=== PATIENT | female | born 1975 | race Caucasian/White ===

== ENCOUNTER 2016-05-21 18:37 | Emergency (ER) | payer OTHER ==
[~2016-05-21] VITALS: Ht 162.6 cm; Wt 99.8 kg
[~2016-05-21 18:37] MED LIST: ADDERALL 20 MG20 MG PO; ATIVAN1 MG PO; CARBIDOPA/LEVO1 TAB PO; GABAPENTIN 100100 MG PO; LEVOTHYROXIN0.175 MG PO; NAPROSYN500 MG PO; OPANA10 MG PO; OXYCONTIN10 M1 PO; PERCOCET 10-321 EAC1 PO; PHENTERMINE HCL30 MG PO; ZOFRAN ODT4 MG DISSOLVE
[2016-05-21 19:25] VITALS: BP 114/71
== END 2016-05-21 19:25 | disposition short-term general hospital (02) ==
LOC: ER 18:37
DX: S80.02XA Contusion of left knee, initial encounter (principal); S80.01XA Contusion of right knee, initial encounter; M17.0 Bilateral primary osteoarthritis of knee; M79.7 Fibromyalgia; F17.210 Nicotine dependence, cigarettes, uncomplicated; W01.198A Fall on same level from slipping, tripping and stumbling with subsequent striking against other object, initial encounter; Y93.89 Activity, other specified; Y92.89 Other specified places as the place of occurrence of the external cause; Y99.8 Other external cause status

== ENCOUNTER 2017-08-16 16:34 | Emergency (ER) | payer OTHER ==
[~2017-08-16] VITALS: Ht 162.6 cm; Wt 90.7 kg
[2017-08-16 16:37] VITALS: BP 127/82
[2017-08-16] MEDS ORDERED: MS CONTIN15 MG PO (16:53)
[2017-08-16] MEDS ORDERED: ELIMITE60 GM TOP (17:17)
[2017-08-16] MEDS ORDERED: PREDNISONE 20 M20 MG PO (17:17)
== END 2017-08-16 17:55 | disposition home or self-care (01) ==
LOC: ER 16:34
DX: B86 Scabies (principal); F17.210 Nicotine dependence, cigarettes, uncomplicated; M79.7 Fibromyalgia